=== PATIENT | male | born 2000 | race African-American/Black ===

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

== ENCOUNTER 2021-09-28 01:23 | Emergency (ER) | payer OTHER ==
[2021-09-28] MEDS ORDERED: Ketorolac Tromethamine 30 MG/ML VIAL ONE (03:32)
[2021-09-28 05:10] LABS: Reticulocyte Count 1.3 % (0.5-1.5)
[2021-09-28 05:21] LABS: #Lymphocytes 2.1 thou/uL (1.20-3.40); #Monocytes 1.1 thou/uL (0.11-0.59); #Neutrophils 12.4 thou/uL (1.40-6.50); %Basophils 0.1 % (0.0-1.0); %Eosinophils 0.1 % (0.0-10.0); %Lymphocytes 13.2 % (21.0-51.0); %Monocytes 6.9 % (0.0-10.0); %Neutrophils 79.7 % (42.0-75.0); Hemoglobin 12.9 g/dL (14.0-18.0); Mean Corpuscular HGB CONC 34.7 g/dL (32.0-36.0); Mean Corpuscular Hemoglobin 27.5 pg (27.0-31.0); Mean Corpuscular Volume 79.3 fL (78.0-98.0); Mean Platelet Volume 9.9 fL (7.4-10.4); Platelet Count 209 thou/uL (130-400); RBC Distribution Width 14.6 % (11.5-14.5); White Blood Cell (WBC) Count 15.6 thou/uL (4.8-10.8)
[2021-09-28] MEDS ORDERED: Morphine 2 MG/ML VIAL ONE (06:22)
[2021-09-28] MEDS ORDERED: Morphine 4 MG/ML VIAL ONE (06:22)
== END 2021-09-28 06:45 ==
LOC: ERS 01:23
DX: D57.1 Sickle-cell disease without crisis (principal)
CPT/HCPCS: 36415; 85025; 85046; 96372; 99284; J1885; J2270